=== PATIENT | male | born 1990 | race Caucasian/White ===

== ENCOUNTER 2018-09-24 16:32 | Inpatient (IN) | payer BC ==
--- NOTE | 2018-09-24 16:45 | EDPHY ---
H & P Stated Complaint: family made him come, he denies need to be here, psych hx Source: Patient Exam Limitations: No limitations - Personal History Current Tetanus/Diphtheria Vaccine: Unsure Current Tetanus Diphtheria and Acellular Pertussis (TDAP): Unsure - Medical/Surgical History Hx Asthma: No Hx Chronic Respiratory Disease: No Hx Diabetes: No Hx Cardiac Disease: No Hx Renal Disease: No Hx Cirrhosis: No Hx Alcoholism: No Hx HIV/AIDS: No Hx Splenectomy or Spleen Trauma: No - Social History Smoking Status: Heavy smoker Time Seen by Provider: 09/24/18 16:45 HPI/ROS: CHIEF COMPLAINT: Reportedly agitated, history of bipolar mood disorder HISTORY OF PRESENT ILLNESS: The patient is brought to the emergency department by his parents secondary to concerns of worsening bipolar mood disorder. The patient does have a history of bipolar mood disorder with 2 hospitalizations in the past. He has become increasingly more psychotic and paranoid over the past several weeks. His psychiatrist has been increasing his Seroquel without a significant improvement of symptoms. The patient is been having symptoms of paranoid delusions, concerns about his privacy and rights being violated. The patient does report using marijuana and alcohol. He last drink earlier today. The patient denies any suicidal or homicidal ideation. The patient denies any acute medical complaints. REVIEW OF SYSTEMS: A comprehensive 10 point review of systems is otherwise negative aside from elements mentioned in the history of present illness. (Young Neely) - Physical Exam Exam: General Appearance: Alert, no distress Eyes: Pupils equal and round no pallor or injection ENT, Mouth: Mucous membranes moist Respiratory: There are no retractions, lungs are clear to auscultation Cardiovascular: Regular rate and rhythm Gastrointestinal: Abdomen is soft and nontender, no masses, bowel sounds normal Neurological: A&O, normal motor function, normal sensory exam, normal cranial nerves Skin: Warm and dry, no rashes Musculoskeletal: Neck is supple nontender Extremities: symmetrical, full range of motion Psychiatric: Pressured speech, cooperative, denies suicidal or homicidal ideation (Young Neely) Constitutional: Initial Vital Signs Temperature (C) 37 C 09/24/18 16:37 Heart Rate 82 09/24/18 16:37 Respiratory Rate 16 09/24/18 16:37 Blood Pressure 145/87 H 09/24/18 16:37 O2 Sat (%) 95 09/24/18 16:37 O2 Delivery Mode Room Air Allergies/Adverse Reactions: No Known Allergies Allergy (Unverified 09/24/18 16:36) Home Medications: Medication Instructions Recorded Seroquel 09/24/18 Medical Decision Making ED Course/Re-evaluation: Patient presents to the ED for medical clearance and psychiatric evaluation secondary to decompensated bipolar mood disorder. The patient has no acute medical complaints he is hemodynamically stable. He is cooperative in the emergency department. The patient was evaluated by Mental Health. He was placed on a M1 psychiatric hold with an eye toward hospitalization at the in-patient unit here towards [facility]. The patient will be turned over to Dr. Wellington at shift change pending psychiatric disposition. (Young Neely) 6:50 a.m.- Patient has been stable overnight, he is awaiting transport to our inpatient behavioral health unit [facility]. Dr. Gomez is the accepting physician. I have completed the EMTALA form. (Vane Wellington) Differential Diagnosis: Differential diagnosis considered includes psychosis, bipolar mood disorder, schizophrenia, substance abuse (Young Neely) - Data Points Laboratory Results: Laboratory Results 09/24/18 17:05 09/24/18 17:05 09/24/18 18:40 Urine Opiates Screen NEGATIVE (NEGATIVE) Urine Barbiturates NEGATIVE (NEGATIVE) Ur Phencyclidine Scrn NEGATIVE (NEGATIVE) Ur Amphetamine Screen NEGATIVE (NEGATIVE) U Benzodiazepines Scrn NEGATIVE (NEGATIVE) Urine Cocaine Screen NEGATIVE (NEGATIVE) U Marijuana (THC) Screen NON-NEGATIVE H (NEGATIVE) Medications Given: Discontinued Medications Nicotine (Nicoderm Cq) 21 mg TD EDNOW ONE Stop: 09/24/18 19:09 Last Admin: 09/24/18 19:10 Dose: 21 mg Departure - Departure Disposition: [facility] IP Clinical Impression: Bipolar mood disorder Condition: Fair Referrals: NONE *PRIMARY CARE P,. [Primary Care Provider] - As per Instructions
[2018-09-24 17:17] LABS: PLATELET COUNT 259 10^3/uL (150-400)
[2018-09-24] MEDS ORDERED: NICOTINE 21 MG/24 HR PATCH TD ONE ×2 (18:12→19:08)
--- NOTE | 2018-09-24 21:19 | ASMTLCPROG ---
Notes Note: Notes: Met with pt and placed him on an M-1 Hold as he appears to be gravely disabled. Spoke with Dr. Neely who met with the parents early when they brought him into the ED. I spoke with father at [id number] who endorsed concerns for pt who appears to be at the beginning of a hypomanic episode. Parents are very supportive. Pt is currently a client at [facility] in [place] but I was unable to reach any staff there this evening. Date Signed: 09/24/2018 09:19 PM Electronically Signed By:Shelly Brown
--- NOTE | 2018-09-24 22:17 | ASMTTLCEVL ---
TLC Evaluation - Basic Information Evaluation Start Date and 09/24/2018 08:30 PM Time Hospital Status Answers: M1 Hold 72-hr M1 Hold Start Date 09/24/2018 09:00 PM and Time Patient statement Notes: "My parents and [facility] wanted me to come here." Narrative Notes: This 28 y/o, single, male, a client at [facility], was brought to the ED by his parents who reside in [place] due to concerns of worsening bipolar mood disorder. The pt has a history of Bipolar Disorder with 2 prior hospitalizations. He has become increasingly more psychotic and paranoid over the past several weeks. His psychiatrist (Dr. Harmon) has been increasing his seroquel without a significant improvement of symptoms. The pt has been preoccupied with concerns for his privacy and treatment at [facility]. The pt denies suicidal, parasuicidal, homicidal ideation, urges or behaviors. Pt denies auditory/visual hallucinations. Pt uses alcohol about once a week (beer) and smokes marijuana occasionally. He feels that marijuana helps him feel less anxious. Diagnosis History Notes: Pt has been diagnosed with bipolar disorder several years ago. He was hospitalized twice - 2 yrs ago - once at [facility] and once at [facility](Pt actually said he had been hospitalized in [place] and [place]) In March of 2018 - he was evaluated at [facility] in [place] and pt has the full report in his backpack. He is medicated with seroquel 600 mg and has been on many other medications in the past. Prior suicide attempts Notes: Pt denies Prior hospitalizations Notes: [facility]; [facility] - over 2 yrs ago. Treatment Responses Notes: Pt has had many medication trials - currently on seroquel without much improvement to his mood. History of violence Notes: Pt denies Therapist: Kevin Martinez Psychiatrist: Dr. Rosales Medications (name, dosage, route, freq uency) Notes: Seroquel 600 mg daily Allergies/Reaction Notes: None reported Sleep Notes: Pt reports that his sleep is okay Appetite Notes: Pt reports that his appetite is fine Medical/Surgical history Notes: Pt severed 2 tendons in his hand about 1 month ago requiring surgery - is currently in a cast. This happened while he was sharpening his kitchen knives. Substance use history (frequency, intensity, his tory, duration) Notes: Pt experimented with cocaine and hallucinogens when much younger. Admit to drinking beer weekly and smoking marijuana when he can as it decreases his anxiety. Pt's tox screen was negative except for positive marijuana. Family composition Notes: Pt's parents live in [place]. He has an older brother who lives in [place]. Need for family Answers: Yes participation in patient's care Family psychiatric/substance abuse history Notes: Pt's brother has suffered from deperession and made a suicide attempt in high school. Developmental history Notes: Pt grew up in [place] - attending school and graduated from high school. He was active in sports and had friends.He attended [employer] but dropped out freshman year (too much partying) He has an Associate Degree from [employer]. 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 Notes: NA Legal Notes: None Orthodox/Spiritual Notes: None Leisure Notes: biking, skiingmusic, drawing, internet Collateral Notes: Spoke with father. Pt has an evaluation done at [facility] in March of 2018 in his backpack. Unable to reach [facility] this evening. Patient's strengths Answers: Athletic (Please select at least TWO strengths): Intelligent Supportive Family Willingness TLC Evaluation - Mental Status Exam Appearance: Answers: Disheveled Eye Contact: Answers: Intermittent Mood: Answers: Euthymic Affect: Answers: Appropriate Congruent w/ Mood Behavior: Answers: Appropriate Cooperative Speech: Answers: Relevant Clear Thought Process: Answers: Tangential Insight: Answers: Poor Judgement: Answers: Fair Manic Signs/Symptoms Answers: Pressured Speech Hallucinations: Answers: None Delusions: Answers: Paranoid Ideation Pt reported to be making Answers: No suicidal/self-injuring threats? Pt reported to have Answers: No aggression/assault ideation/behavior? Pt reported to be making Answers: No aggression/assault threats? Pt exhibits inability to Answers: Yes care for self/grave disability? History of Answers: No suicidal/self-injuring ideation, behavior, or threats? History of Answers: No aggressive/assaultive ideation, behavior, or threats? History of serious Answers: No physical harm to self/others while in treatment setting? TLC Evaluation - Suicide/Homicide Risk Suicide Risk Factors: Answers: Lack/Loss of Employment Psychotic Disorder Single TLC Evaluation - Wrap-up BDI Total Score: 20 BDI Question #2 Score: 0 BDI Question #9 Score: 0 AXIS I Diagnosis (include DSM-V and ICD-10 codes), must also be entered in [employer], which is the source of truth. Notes: 296.42 (F31.12) Bipolar I Disorder, Moderate, most recent episode Manic Evaluation End Date and 09/24/2018 10:20 PM Time (HH:MM): Date Signed: 09/24/2018 10:17 PM Electronically Signed By:Shelly Brown
--- NOTE | 2018-09-24 22:21 | ASMTTCLDSP ---
TLC Discharge Disposition Disposition: Answers: Admit Disposition Notes: Notes: In consultation with ED MD, Dr. Young Neely and on-call psychiatrist Dr. Elayne Gomez both concurred that pt appears to meet the 27-65 criteria requiring in-pt psychiatric hospitalization as pt appears to be gravely disabled at this time. Discharge Concerns/Recommendations: Notes: Pt is a client at [facility] For inpatient Elayne Gomez MD admission, the following psychiatrist agreed to accept patient for admission to Behavioral Health ([facility]): Type of Hold: Answers: M1/72-hour Hold Hold initiated by: Answers: ED Physician Date Signed: 09/24/2018 10:20 PM Electronically Signed By:Shelly Brown
--- NOTE | 2018-09-25 02:25 | PDCONSULT ---
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 Per their report, the patient has become increasingly psychotic and paranoid over the past several weeks. His psychiatrist has been increasing his dose of Seroquel without significant improvement in symptoms. His parents stated that he was having paranoid delusions about privacy concerns. He denies any issues. He tells me he is sleeping well. He denies altered appetite, mood, delusions, hallucinations, and SI/HI. PMHx: Bipolar disorder PSHx; R wrist surgery Family hx: Patient denies VS: Temp Pulse Resp BP Pulse Ox 36.6 C 72 16 120/80 94 09/24/18 23:20 09/24/18 23:20 09/24/18 23:20 09/24/18 23:20 09/24/18 23:20 PE: GEN: NAD, A&Ox3 HEENT: MMM, no ulcers CV: nl S1, S2, no mrg PULM: CTAB, no w/r/r ABD: Soft, NTND EXT: No edema, 2+ pulses SKIN: No rash, splint on L wrist NEURO: CN II-XII intact, no weakness/numbness PSYCH: Flat affect, denies SI/HI WBC 8.02 10^3/uL (3.80-9.50) 09/24/18 17:05 RBC 5.28 10^6/uL (4.40-6.38) 09/24/18 17:05 Hgb 16.2 g/dL (13.7-17.5) 09/24/18 17:05 Hct 47.0 % (40.0-51.0) 09/24/18 17:05 MCV 89.0 fL (81.5-99.8) 09/24/18 17:05 MCH 30.7 pg (27.9-34.1) 09/24/18 17:05 MCHC 34.5 g/dL (32.4-36.7) 09/24/18 17:05 RDW 12.7 % (11.5-15.2) 09/24/18 17:05 Plt Count 259 10^3/uL (150-400) 09/24/18 17:05 MPV 10.0 fL (8.7-11.7) 09/24/18 17:05 Neut % (Auto) 58.6 % (39.3-74.2) 09/24/18 17:05 Lymph % (Auto) 24.9 % (15.0-45.0) 09/24/18 17:05 Bertie % (Auto) 9.6 % (4.5-13.0) 09/24/18 17:05 Eos % (Auto) 6.2 % (0.6-7.6) 09/24/18 17:05 Baso % (Auto) 0.5 % (0.3-1.7) 09/24/18 17:05 Nucleat RBC Rel Count 0.0 % (0.0-0.2) 09/24/18 17:05 Absolute Neuts (auto) 4.70 10^3/uL (1.70-6.50) 09/24/18 17:05 Absolute Lymphs (auto) 2.00 10^3/uL (1.00-3.00) 09/24/18 17:05 Absolute Monos (auto) 0.77 10^3/uL (0.30-0.80) 09/24/18 17:05 Absolute Eos (auto) 0.50 10^3/uL (0.03-0.40) H 09/24/18 17:05 Absolute Basos (auto) 0.04 10^3/uL (0.02-0.10) 09/24/18 17:05 Absolute Nucleated RBC 0.00 10^3/uL (0-0.01) 09/24/18 17:05 Immature Gran % 0.2 % (0.0-1.1) 09/24/18 17:05 Immature Gran # 0.02 10^3/uL (0.00-0.10) 09/24/18 17:05 RBC/WBC/PLT Morphology TNP 09/24/18 17:05 Platelet Estimate TNP 09/24/18 17:05 Sodium 137 mEq/L (135-145) 09/24/18 17:05 Potassium 4.2 mEq/L (3.5-5.2) 09/24/18 17:05 Chloride 101 mEq/L (97-110) 09/24/18 17:05 Carbon Dioxide 26 mEq/l (22-31) 09/24/18 17:05 Anion Gap 10 mEq/L (6-14) 09/24/18 17:05 BUN 15 mg/dL (7-23) 09/24/18 17:05 Creatinine 0.8 mg/dL (0.7-1.3) 09/24/18 17:05 Estimated GFR > 60 09/24/18 17:05 Glucose 92 mg/dL (70-100) 09/24/18 17:05 Calcium 9.3 mg/dL (8.5-10.4) 09/24/18 17:05 Urine Opiates Screen NEGATIVE (NEGATIVE) 09/24/18 18:40 Urine Barbiturates NEGATIVE (NEGATIVE) 09/24/18 18:40 Ur Phencyclidine Scrn NEGATIVE (NEGATIVE) 09/24/18 18:40 Ur Amphetamine Screen NEGATIVE (NEGATIVE) 09/24/18 18:40 U Benzodiazepines Scrn NEGATIVE (NEGATIVE) 09/24/18 18:40 Urine Cocaine Screen NEGATIVE (NEGATIVE) 09/24/18 18:40 U Marijuana (THC) Screen NON-NEGATIVE (NEGATIVE) H 09/24/18 18:40 Ethyl Alcohol < 10 mg/dL (0-10) 09/24/18 17:05 A/P: 28 yo M w/ hx of bipolar disorder presents with suspected decompensation. 1. Bipolar disorder - Parents report increasing paranoid delusions despite increasing doses of Seroquel per his psychiatrist. - M1 hold - Admission in inpatient behavioral health for further evaluation Diet - Regular Code - Full Ppx - Low risk
[2018-09-25] MEDS ORDERED: MAGNESIUM HYDROXIDE 30 ML UDCUP PO PRN (13:54)
[2018-09-25] MEDS ORDERED: OLANZapine DISINTEGR 10 MG TAB PO PRN (13:54)
[2018-09-25] MEDS ORDERED: MAG HYDROX/AL HYDROX/SIMETH 30 ML UDCUP PO PRN (13:54)
[2018-09-25] MEDS ORDERED: ACETAMINOPHEN 325 MG TAB PO PRN (13:54)
[2018-09-25] MEDS: NICOTINE 21 MG/24 HR PATCH TD SCH (14:29)
[2018-09-25] MEDS: QUEtiapine FUMARATE 200 MG TAB PO SCH (20:05)
[2018-09-26] MEDS: NICOTINE 21 MG/24 HR PATCH TD SCH (08:37)
--- NOTE | 2018-09-26 08:39 | ASMTBHMTP ---
Master Treatment Plan Master Treatment Plan Answers: Mood Instability with for: Psychosis Date: 09/26/2018 Diagnosis on Admission: 296.42 (F31.12) Bipolar I Disorder, Moderate, most recent episode Manic Expected length of stay: 3-5 Reason for admission: Notes: This 28 y/o, single, male, a client at [facility], was brought to the ED by his parents who reside in [place] due to concerns of worsening bipolar mood disorder. The pt has a history of Bipolar Disorder with 2 prior hospitalizations. He has become increasingly more psychotic and paranoid over the past several weeks. His psychiatrist (Dr. Harmon) has been increasing his seroquel without a significant improvement of symptoms. The pt has been preoccupied with concerns for his privacy and treatment at [facility]. The pt denies suicidal, parasuicidal, homicidal ideation, urges or behaviors. Pt denies auditory/visual hallucinations. Pt uses alcohol about once a week (beer) and smokes marijuana occasionally. He feels that marijuana helps him feel less anxious. Patient's stated presenting problems: Notes: "[facility] made me come here. They violated my rights". Patient's goals for treatment: Notes: "Relook at medications". Patient's strengths: Notes: "I'm smart". Identify supports outside of hospital: Notes: "My computer". Discharge criteria: Notes: Psychotic symptoms will be reduced or eliminated with return to baseline functioning in affect, thinking and behavior prior to discharge. Initial disposition plan/considerations: Notes: Ct. will participate in unit activities. Master Treatment Plan Required Signatures Psychiatrist signature: Answers: Psychiatrist: RN on-shift signature: Answers: RN: Patient signature: Answers: Patient: Date Signed: 09/26/2018 08:38 AM Electronically Signed By:Jennifer Mixon
--- NOTE | 2018-09-26 08:47 | ASMTCMCOM ---
CM Note CM Note Notes: CC met with ct. to develop MTP. Ct. presented as very guarded and paranoid. His answers were very short. He refused signing ALVAREZ for his parents and providers. [place] [facility] [facility] parents are considering [facility] services as they do not believe that returning to [facility] services would be beneficial for ct. Sandi. was in an independent living apartment with some [facility] services but parents think that he needs higher level of services now. The other option they are considering is having him come home. They were not able to discuss it with him as he doesn't want to take their calls. [facility] [place] that [place]s paranoia is part of his manic symptoms and that when he is at baseline and stable he doesn't experience paranoia. [facility] will email this CC summaries of previous admissions. Date Signed: 09/26/2018 08:46 AM Electronically Signed By:Jennifer Mixon
[2018-09-26] MEDS: DIVALPROEX ER 500 MG TAB PO SCH (08:56)
[2018-09-26] MEDS ORDERED: NICOTINE 21 MG/24 HR PATCH TD SCH (09:00)
--- NOTE | 2018-09-26 10:05 | BAPA ---
[f rep st] ADMISSION PSYCHIATRIC ASSESSMENT DATE OF SERVICE: 09/26/2018 CHIEF COMPLAINT: "I'm here because I was forced to come here by [facility]. They just force me to do things, force me to sign things, answer questions for me when I meet with my psychiatrist. My rights are always being violated, I'm here because they want me here." HISTORY OF PRESENT ILLNESS: From the ED note dated 09/24/18, patient was brought to the emergency department by his parents due to concerns of worsening bipolar mood disorder. Patient has a history of bipolar disorder with 2 hospitalizations in the past. Reportedly, patient has become more psychotic and paranoid over the past several weeks. Patient's psychiatrist has been increasing his Seroquel without a significant improvement in symptoms. Reportedly, patient has been having symptoms of paranoid delusions, concerns about his privacy and his rights being violated. Patient reports using marijuana and alcohol. Last drink was earlier in the day prior to his arrival at the ED. Patient denied any suicidal or homicidal ideation. From the [facility] evaluation dated 09/24/18, patient was placed on a 72-hour M-1 hold with start date and time of 09/24/18 at 9 p.m. Patient reported to the [facility] bakery helper "my parents and Andreee wanted me to come here." Patient reports to this FREIGHT COORDINATOR the current Seroquel dose is making him "too tired" in the morning upon awakening. Patient reports no improvement in symptoms of bipolar disorder and describes Seroquel working well for sleep only. Patient reports the main symptom he needs help with is anxiety. Patient reports a history of kwaku 2 years ago and was hospitalized in [place], [place] at [facility] for "about 5 days." Patient describes symptoms during that period of time as elevated mood, grandiosity, decreased need for sleep, pressure to keep talking. Reports he was easily distracted, increased goal-directed activity. Patient does not describe any specifics details, but does agree that he was having these symptoms during that time period and was hospitalized. Patient denies having these symptoms currently. The patient again reports the main symptom he needs help with is anxiety and reports that Ativan works best and does ask for a prescription for Ativan. Patient also reports a diagnosis of attention deficit hyperactivity disorder. This diagnosis was not reported in any of patient's past records. Patient appears to be a poor historian, and provides minimal history. Will continue to gather HPI collateral throughout the course of the patient's hospitalization. Patient provides his consent for this FREIGHT COORDINATOR to call his father, Oliverio, to gather more collateral and discuss treatment and discharge planning. Patient provides following number for his father: [phone]. Patient states, "Yeah, you can call him, he is super busy, may need to leave a message. Don't call my mom though, just my dad." Patient also provides consent for this FREIGHT COORDINATOR to contact Dr. Burrows at [facility] to discuss treatment, discharge planning, and Sundeep Malik as potential step-down for continued treatment after discharge from [facility]. Patient reports, "Yes, if that is were you want me to go, then that' s what I'll do. Michelle owns me right now though." TREATMENT TEAM MEETING: Patient met with this FREIGHT COORDINATOR and treatment team to review treatment plan and goals for hospitalization. When asked why patient is hospitalized, patient refuses to answer and states, "You know I already said this four times now." Patient appears paranoid, suspicious and refuses to sign treatment plan and attendance document. Patient continues to report paranoid delusions regarding his rights and privacy being violated. Mental status during treatment meeting is notable for paranoid delusions. PAST PSYCHIATRIC HISTORY: Patient was diagnosed with bipolar disorder II years ago after a period of kwaku and was hospitalized in [place], [place]. Patient has also been hospitalized at [facility] in [place]. In March 2018, patient was evaluated at [facility] in [place]. Patient most recently prescribed Seroquel. [facility] evaluation reports Seroquel dose as 600 mg. Chart review indicates Seroquel XR 400 mg. Patient states that most recent dose of Seroquel was 400 mg at h.s. Patient denies any history of suicide attempts. Patient reports history of numerous trials of antipsychotics and traditional mood stabilizers. Patient reports trials of lithium, Depakote, olanzapine in the past. Patient states "olanzapine is the worst drug ever." Patient reports he is not willing to try lithium again. Patient does agree to begin a trial of Depakote. Patient appears to be a poor historian, states he is unsure if these medications work, but patient is very adamant about not wanting to be put back on olanzapine or lithium. Patient reports need for Seroquel for sleep, reports he had been sleeping okay when using Seroquel at bedtime. Will continue to gather past psychiatric history throughout the course of the patient's hospitalization. ALLERGIES: No known allergies. CURRENT MEDICATIONS: 1. Tylenol 650 mg p.o. q.4 hours p.r.n. 2. Depakote ER 1500 mg p.o. daily. 3. Ativan 0.5-1 mg p.o. q.6 hours p.r.n. 4. Maalox syrup 30 mL p.o. q.6 hours p.r.n. 5. Milk of magnesia 30 mL p.o. daily p.r.n. 6. Nicotine 21 mg transdermal daily. 7. Seroquel 200 mg p.o. q.h.s. PAST MEDICAL HISTORY: Medical/surgical history significant for 2 severed tendons in hand about 1 month ago requiring surgery. Patient is currently in a cast. Patient reports no other medical/surgical history. Will continue to gather patient's medical/surgical history throughout the course of the patient' s hospitalization. SOCIAL HISTORY: Patient reports he was born and raised in [place], attended and graduated from high school in [place]. Patient reports he attended the [employer] but dropped out of his freshman year. Patient currently has an associate degree from [employer], [employer]. Patient is currently single with no children. Patient currently resides in his own apartment and is currently in treatment with Michelle. Patient describes his sexual orientation as heterosexual and states he is currently not in a relationship. 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 Patient reports no history of duty, no legal history. Patient reports no yarsanism or spiritual practice. SUBSTANCE USE HISTORY: Patient reports experimenting with cocaine and hallucinogens during college. Patient reports using marijuana to decrease his anxiety. Patient's urine toxicology screen was positive for marijuana. Patient reports he last used marijuana 1 week ago and reports he is unable to use marijuana very much due to inability to afford it. Will continue to gather patient's substance use history throughout the course of the patient's hospitalization. SUBSTANCE ABUSE BRIEF INTERVENTION: Brief intervention regarding the risks of cannabis abuse is provided to patient with goal to reduce the risk of harm that could result from the continued use of cannabis, with the general aim to investigate the problem, raise awareness of problem, develop a solution with the patient, recommend a specific change or activity, and motivate the patient toward change. Assess substance abuse behavior and give supportive advice about harm reduction, recommend a reduction in hazardous/at-risk consumption patterns, and facilitate referrals for additional specialized treatment with assistant child care teacher. Intermediate goal is for the patient to quit and attend outpatient substance abuse treatment. Intervention focus on intermediate goals to allow for more immediate success in the treatment process to keep the patient motivated. Review following with patient: Cannabis use risks: Short- term use: impaired short-term memory, impaired motor coordination, altered judgement, in high doses paranoia and psychosis. Long-term use addiction, diminished life satisfaction and achievement, symptoms of chronic bronchitis, and increased risk of chronic psychosis disorders if predisposition to such disorders. In withdrawal anger, aggression irritability, anxiety and nervousness, decreased appetite or weight loss, restlessness, and sleep difficulties with strange dreams. OUTPATIENT SUBSTANCE ABUSE TREATMENT: Patient referred to outpatient provider and treatment for continued treatment related to substance abuse. FAMILY PSYCHIATRIC HISTORY: Patient's brother has a history of depression and reportedly made a suicide attempt while in high school. No other family psychiatric history or substance abuse history reported at this time. Will continue to gather patient's family psychiatric history throughout the course of the patient's hospitalization. ADMISSION LABS AND STUDIES: 1. CBC within normal limits, except absolute eosinophils were elevated at 0.50. 2. BMP within normal limits. 3. Toxicology screen non-negative for THC, negative for the other substances that were screened, and negative for ethyl alcohol. MENTAL STATUS EXAM: Patient is a well-nourished male looking stated chronological age. Attire is appropriate. Dress is casual. Grooming status is appropriate. Ambulation is independent. Gait is normal and coordinated. Posture is normal and relaxed. At times, patient does appear to be tense, scanning the room. Patient does look behind him several times throughout the course of the evaluation. Eye contact is fairly appropriate and adequate. Motor activity is appropriate, with purposeful, organized, coordinated movements , with no involuntary movements noted. Patient turns his head several times to look behind himself in a paranoid and suspicious manner. Attitude is fairly cooperative and friendly. Patient does appear to be guarded and defensive at times. Patient appears distractible and disinterested and does not relate well to this interviewer. Language production is spontaneous. Rate, rhythm, and volume are normal. Articulation is clear. Patient reports mood as "okay" with congruent affect. Patient's thought process is nonlinear and illogical, with loose associations, tangential thought. No thought blocking or concrete thinking or any other signs of formal thought disorder noted. Patient does not report suicidal or homicidal thoughts, ideas, or plans. Patient denies auditory or visual hallucinations. Patient reports paranoid delusions. Patient does appear to be suspicious during the interview. Patient does not appear to be attending to internal stimuli. Patient is oriented to person, place, and time. Patient's attention and concentration are fair. Patient's insight and judgment are poor. There is no evidence of gross cognitive dysfunction at any point during the interview and no evidence of apparent dysfunction in recent or remote memory noted. The patient does not report undesirable side effects from current medications. DIAGNOSES: Based on the patient's history and current presentation, patient's diagnosis is: 1. Bipolar I disorder, severe. 2. Cannabis use disorder, severe. 3. R/O Schizoaffective Disorder, bipolar type. 4. R/O Cannabis-induced psychosis. FORMULATION: The patient is a 28-year-old male, single, unemployed, currently being treated by Michelle for therapeutic living and is treated by Dr. Harmon , psychiatrist. Patient currently resides in apartment in [place], [place]. Patient presents to the hospital involuntarily with parents at the [facility] due to decompensation of bipolar disorder symptoms and is currently on an M-1 hold. Patient requires continued inpatient care because of current psychosis, notably paranoid delusions. Patient currently exhibiting no signs of kwaku or depression and reports no symptoms of kwaku or depression. Patient is unable to appropriately attend to his ADLs and appropriately communicate his basic needs. Patient has a past psychiatric history of bipolar disorder and is currently treated with Seroquel 400 mg p.o. q.h.s., and response to treatment has been poor. The patient reports no response for mood stability. Patient is a high safety risk due to current mood instability. Protective factors while hospitalized include ongoing safety checks, active involvement in treatment and support from our treatment team. Patient could benefit from inpatient hospitalization for safety, crisis stabilization, and medication evaluation. PLAN: 1. Medications: After reviewing options, risks, and benefits with the patient, patient agrees to continue current medications listed above. No other medication changes at this time as more time is needed to determine ongoing tolerability and efficacy. Plan is to continue to observe patient for response and side effects from medications, and ongoing monitoring and evaluation. 2. Review with patient informed consent and recommendations for psychotropic medication treatment listed below 3. Labs: liver function, A1c, lipid panel 4. Therapy: continue milieu and group therapy 5. Further investigation including gathering information from patients relatives and review of past case records to inform treatment plan. 6. Safety/Wellness plan and follow-up outpatient appointments to be established prior to discharge. Next steps are for patient to meet with floor care technician to plan a safe discharge plan and establish outpatient services for ongoing treatment. 7. Confer with inpatient treatment team regarding treatment plan. 8. Address psychosocial stressors by meeting with assistant child care teacher to establish discharge plan including referrals for outpatient services. 9. Legal status: M1 10. Consider discharge next week if patient is in stable condition, safe, and has a safe discharge plan. 11. Substance abuse interventions: cannabis ESTIMATED LENGTH OF STAY: 7-10 days PSYCHOTROPIC MEDICATION TREATMENT INFORMED CONSENT and RECOMMENDATIONS: Review nature of condition, diagnosis, and prognosis. Review nature and purpose of psychotropic medication treatment. Review type of psychotropic medications being ordered. Review risk and benefits of psychotropic medication treatment. Review probable length of time will need to take medications. Review risk and benefits of not undergoing psychotropic medication treatment. Review alternative treatments to psychotropic medications. Review psychotropic medications contraindications, drug-drug interactions, side effects, and importance of reporting any side effects to a psychiatric provider or nurse during inpatient hospitalization, and upon discharge to patients psychiatric outpatient provider, primary care provider, or other health health care consultant. Review importance of asking a nurse, psychiatric provider, or primary care provider any questions or problems concerning the psychotropic medications. Verify patient understands the information that has been provided, and understands, accepts, and agrees to psychotropic medications. Review patients safety plan and importance of patient to communicate to staff while hospitalized if patient is ever a danger to self/others, or unable to care for self, and upon discharge, the importance for patient to contact [facility] or [facility], or go to the nearest emergency room, if patient is ever a danger to self/others, or unable to care for self. Recommend that upon discharge patient establish medication management treatment with a psychiatric provider, establishes routine therapy appointments, and follow-up with primary care provider. Verify patient understands and agrees to these recommendations. /[id number]/MODL MTDD
[2018-09-26] MEDS: NICOTINE POLACRILEX 2 MG GUM B PRN ×5 (13:51→20:05)
[2018-09-26] MEDS: QUEtiapine FUMARATE 200 MG TAB PO SCH (20:05)
[2018-09-27] MEDS: NICOTINE POLACRILEX 2 MG GUM B PRN ×5 (06:34→18:23)
--- NOTE | 2018-09-27 06:49 | SOAPPROG ---
SOAP Progress Note Assessment/Plan: Assessment: Bipolar I Disorder, with mood congruent psychotic features. Cannabis Use Disorder, Severe. R/O Schizoaffective Disorder, Bipolar Type. No improvement noted (see subjective/objective note). Patient is not safe to discharge at this time as patient continues to exhibit signs of psychosis (notably delusions) , and express psychosis symptoms. Patient requires continued inpatient care because of current psychosis, and requires inpatient level of care to stabilize in order to no longer be gravely disabled due to mental illness. Patient exhibits persistent inability to perform essential function due to current psychosis. Patient is unable to communicate his basic needs appropriately and unable to attend independently and appropriately to ADLs. Patients support system has inability to manage functional impairment at lower level of care. Patient could benefit from continued inpatient hospitalization for crisis stabilization, safety, and medication evaluation. Plan: 1. Psychotropic medications: After reviewing options, risks, and benefits, patient agrees to continue Depakote ER 1,500 mg QD, discontinue Seroquel, and begin Invega 6 mg po QD. No other medication changes as more time is needed to determine ongoing tolerability and efficacy. Plan is to continue to observe patient for response and side effects from medications, and ongoing monitoring and evaluation. 2. Review with patient informed consent and recommendations for psychotropic medication treatment listed below 3. Labs: no additional labs at this time 4. Therapy: continue milieu and group therapy 5. Further investigation including gathering information from patients relatives and review of past case records to inform treatment plan. 6. Safety/Wellness plan and follow-up outpatient appointments to be established prior to discharge. Next steps are for patient to meet with healthcare interpreter to plan a safe discharge plan and establish outpatient services for ongoing treatment. 7. Confer with inpatient treatment team regarding treatment plan. 8. Psychosocial stressors addressed through director case management. 9. Legal status: M1 10. Consider discharge tomorrow if patient is in stable condition, safe, and has a safe discharge plan. 11. Substance abuse interventions: THC PSYCHOTROPIC MEDICATION TREATMENT INFORMED CONSENT and RECOMMENDATIONS: Review nature of condition, diagnosis, and prognosis. Review nature and purpose of psychotropic medication treatment. Review type of psychotropic medications being ordered. Review risk and benefits of psychotropic medication treatment. Review probable length of time patient will need to take medications. Review risk and benefits of not undergoing psychotropic medication treatment. Review alternative treatments to psychotropic medications. Review psychotropic medications contraindications, drug-drug interactions, side effects, and importance of reporting any side effects to a psychiatric provider or nurse during inpatient hospitalization, and upon discharge to patients psychiatric outpatient provider, primary care provider, or other health critical care registered nurse. Review importance of asking a nurse, psychiatric provider, or primary care provider any questions or problems concerning the psychotropic medications. Verify patient understands the information that has been provided, and understands, accepts, and agrees to psychotropic medications. Review patients safety plan and importance of patient to report to staff while hospitalized if patient is ever a danger to self/others, or unable to care for self, and upon discharge, the importance for patient to contact [facility] or [facility], or go to the nearest emergency room, if patient is ever a danger to self/others, or unable to care for self. Recommend that upon discharge patient establish medication management treatment with a psychiatric provider, establishes routine therapy appointments, and follow-up with primary care provider. Verify patient understands and agrees to these recommendations. 09/27/18 06:49 Subjective: Following up with patient for evaluation of psychosis and safety. Patient reports, "How is it going on my rights? Look I will show you." Patient provides several documents including one that has the following written over and over, filling up entire 8x11 page, "All work and no play makes Misael a dull boy." When this FISHING VESSEL MATE asks the patient what this means patients states, "Haven't you ever seen The Shining?" Patient reports no side effects from current medications and agrees to continue Depakote, discontinue Seroquel, and being Invega 6 mg po QD. Objective: Vital Signs Temp Pulse Resp BP Pulse Ox 36.5 C 78 18 122/69 H 96 09/27/18 06:00 09/27/18 06:00 09/27/18 06:00 09/27/18 06:00 09/27/18 06:00 MSE: The patient is a well-nourished male looking stated chronological age. Attire is appropriate and dress is casual. Grooming status is appropriate. Ambulation is independent. Gait is normal and coordinated. Posture is normal and relaxed. Eye contact is appropriate. Motor activity is appropriate with purposeful, organized, coordinated movements; with no involuntary movements. Attitude is cooperative. Patient appears attentive and relates well to this interviewer. Language production is spontaneous. R/R/V normal. Articulation is clear. Patient reports mood as okay with congruent and appropriate affect. Patients thought process is disorganized, non-linear, and illogical. Patient denies suicidal thoughts, denies homicidal ideation. Patient denies auditory, visual hallucinations. Patient reports delusions. Patient does not appear to be attending to internal stimuli. Patients attention and concentration are fair. Patient is oriented to person, place. Patients insight and judgment are poor. SUBSTANCE ABUSE BRIEF INTERVENTION: Brief intervention regarding the risks of THC abuse is provided to patient with goal to reduce the risk of harm that could result from the continued use of THC, with the general aim to investigate the problem, raise awareness of problem, develop a solution with the patient, recommend a specific change or activity, and motivate the patient toward change. Assess substance abuse behavior and give supportive advice about harm reduction, recommend a reduction in hazardous/at-risk consumption patterns, and facilitate referrals for additional specialized treatment with inpatient care manager rn. Intermediate goal is for the patient to quit and attend outpatient substance abuse treatment. Intervention focus on intermediate goals to allow for more immediate success in the treatment process to keep the patient motivated. Review following with patient: Cannabis use risks: Short- term use: impaired short-term memory, impaired motor coordination, altered judgement, in high doses paranoia and psychosis. Long-term use addiction, diminished life satisfaction and achievement, symptoms of chronic bronchitis, and increased risk of chronic psychosis disorders if predisposition to such disorders. In withdrawal anger, aggression irritability, anxiety and nervousness, decreased appetite or weight loss, restlessness, and sleep difficulties with strange dreams. OUTPATIENT SUBSTANCE ABUSE TREATMENT: Patient referred to outpatient provider and treatment for continued treatment related to substance abuse. - Time Spent With Patient Time Spent With Patient: 15 minutes, met with patient individually. - Pending Discharge Pending Discharge Within 24 Hours: No Pending Discharge Within 48 Hours: No ICD10 Worksheet Patient Problems: Problems Problem Status Onset Bipolar mood disorder Acute
[2018-09-27] MEDS: NICOTINE 21 MG/24 HR PATCH TD SCH (10:42)
[2018-09-27] MEDS: DIVALPROEX ER 500 MG TAB PO SCH (10:43)
[2018-09-27] MEDS: PALIPERIDONE 3 MG TAB.ER PO SCH (10:44)
--- NOTE | 2018-09-27 12:54 | ASMTCMCOM ---
CM Note CM Note Notes: Ct. continues to be very paranoid. He refused his parents' suggestion to come by his apartment to water his plants even though he realizes that they may . Date Signed: 09/27/2018 12:53 PM Electronically Signed By:Jennifer Mixon
[2018-09-27] MEDS: LORazepam 0.5 MG TAB PO PRN (16:57)
[2018-09-28] MEDS: NICOTINE POLACRILEX 2 MG GUM B PRN ×7 (04:57→19:41)
[2018-09-28] MEDS: LORazepam 0.5 MG TAB PO PRN ×3 (05:47→18:04)
[2018-09-28] MEDS: NICOTINE 21 MG/24 HR PATCH TD SCH (08:30)
[2018-09-28] MEDS: PALIPERIDONE 3 MG TAB.ER PO SCH (08:31)
[2018-09-28] MEDS: DIVALPROEX ER 500 MG TAB PO SCH (08:31)
--- NOTE | 2018-09-28 09:25 | ASMTCMCOM ---
CM Note CM Note Notes: Ct. continues to be very paranoid and guarded. He responds to questions with one word answers and has not been engaging in conversation with this CC. Date Signed: 09/28/2018 09:24 AM Electronically Signed By:Jennifer Mixon
--- NOTE | 2018-09-28 16:56 | SOAPPROG ---
SOAP Progress Note Assessment/Plan: Assessment: 28 yo M w/ hx of bipolar disorder brought in by his parent due to concerns of decompensation. Per their report, the patient has become increasingly psychotic and paranoid over the past several weeks. His psychiatrist has been increasing his dose of Seroquel without significant improvement in symptoms. His parents stated that he was having paranoid delusions about privacy concerns. WEEKEND PLAN: 09/28/18 16:53 1. Patient was recently started on Depakote and Invega to treat kwaku and psychosis since patient and Dr. Dong didn't feel that Seroquel was very effective. Patient denies any SE's, and there are no signs of EPS or TD. 2. Patient remains paranoid, especially feels [facility] had "no right" to make him come to hospital. 3. Parents would like patient to d/c to [facility]. 4. [facility] Subjective: Patient is pacing in hallway, wearing baseball cap and splint on right forearm. Patient is upset about psych admission and angry at [facility] providers for putting him on [facility]. Patient keeps asking for a copy of the book, "Finding Sanity ," which he says his provider at [facility] recommended to him. Objective: Vital Signs Temp Pulse Resp BP Pulse Ox 36.5 C 97 16 131/80 H 95 09/27/18 06:00 09/28/18 06:00 09/28/18 06:00 09/28/18 06:00 09/28/18 06:00 MSE: Affect: Labile, irritable at times, cooperative mostly Mood: "OK" TP: Disorganized, perseverates TC: Denies any SI/HI, still paranoid Insight/ Judgment: Poor - Time Spent With Patient Time Spent With Patient: 15" - Pending Discharge Pending Discharge Within 24 Hours: No Pending Discharge Within 48 Hours: No ICD10 Worksheet Patient Problems: Problems Problem Status Onset Bipolar mood disorder Acute
[2018-09-29] MEDS: LORazepam 0.5 MG TAB PO PRN ×3 (06:52→20:47)
[2018-09-29] MEDS: NICOTINE POLACRILEX 2 MG GUM B PRN ×7 (06:53→20:48)
[2018-09-29] MEDS: PALIPERIDONE 3 MG TAB.ER PO SCH (08:31)
[2018-09-29] MEDS: NICOTINE 21 MG/24 HR PATCH TD SCH (08:31)
[2018-09-29] MEDS: DIVALPROEX ER 500 MG TAB PO SCH (08:31)
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
[2018-09-30] MEDS: LORazepam 0.5 MG TAB PO PRN ×3 (06:29→19:13)
[2018-09-30] MEDS: NICOTINE POLACRILEX 2 MG GUM B PRN ×7 (06:30→19:13)
--- NOTE | 2018-09-30 06:52 | SOAPPROG ---
SOAP Progress Note Assessment/Plan: Assessment: Schizoaffective Disorder, Bipolar Type. Cannabis Use Disorder, Severe. Slight improvement noted (see subjective/objective note). Patient is not safe to discharge at this time as patient continues to exhibit signs of psychosis ( notably delusions), and express psychosis symptoms. Patient requires continued inpatient care because of current psychosis, and requires inpatient level of care to stabilize in order to no longer be gravely disabled due to mental illness. Patient could benefit from continued inpatient hospitalization for VPA level tomorrow morning, continued stabilization, and ongoing medication evaluation. Consider discharge tomorrow. Plan: 1. Psychotropic medications: After reviewing options, risks, and benefits, patient agrees to continue current medications. No medication changes as more time is needed to determine ongoing tolerability and efficacy. Plan is to continue to observe patient for response and side effects from medications, and ongoing monitoring and evaluation. 2. Review with patient informed consent and recommendations for psychotropic medication treatment listed below 3. Labs: VPA level tomorrow AM 4. Therapy: continue milieu and group therapy 5. Further investigation including gathering information from patients relatives and review of past case records to inform treatment plan. 6. Safety/Wellness plan and follow-up outpatient appointments to be established prior to discharge. Next steps are for patient to meet with skin care technician to plan a safe discharge plan and establish outpatient services for ongoing treatment. 7. Confer with inpatient treatment team regarding treatment plan. 8. Psychosocial stressors addressed through case monitor. 9. Legal status: [facility] 10. Consider discharge tomorrow if patient is in stable condition, safe, and has a safe discharge plan. 11. Substance abuse interventions: THC PSYCHOTROPIC MEDICATION TREATMENT INFORMED CONSENT and RECOMMENDATIONS: Review nature of condition, diagnosis, and prognosis. Review nature and purpose of psychotropic medication treatment. Review type of psychotropic medications being ordered. Review risk and benefits of psychotropic medication treatment. Review probable length of time patient will need to take medications. Review risk and benefits of not undergoing psychotropic medication treatment. Review alternative treatments to psychotropic medications. Review psychotropic medications contraindications, drug-drug interactions, side effects, and importance of reporting any side effects to a psychiatric provider or nurse during inpatient hospitalization, and upon discharge to patients psychiatric outpatient provider, primary care provider, or other health career services representative. Review importance of asking a nurse, psychiatric provider, or primary care provider any questions or problems concerning the psychotropic medications. Verify patient understands the information that has been provided, and understands, accepts, and agrees to psychotropic medications. Review patients safety plan and importance of patient to report to staff while hospitalized if patient is ever a danger to self/others, or unable to care for self, and upon discharge, the importance for patient to contact [facility] or [facility], or go to the nearest emergency room, if patient is ever a danger to self/others, or unable to care for self. Recommend that upon discharge patient establish medication management treatment with a psychiatric provider, establishes routine therapy appointments, and follow-up with primary care provider. Verify patient understands and agrees to these recommendations. 09/30/18 06:51 Subjective: Following up with patient for evaluation of psychosis and safety. Patient reports, "Am I leaving today?" Patient reports no side effects and agrees to continue current medications. Patient agrees to VPA level tomorrow prior to discharge. Objective: Vital Signs Temp Pulse Resp BP Pulse Ox 36.5 C 98 16 134/79 H 98 09/29/18 06:00 09/30/18 06:00 09/30/18 06:00 09/30/18 06:00 09/30/18 06:00 MSE: The patient is a well-nourished male looking stated chronological age. Attire is appropriate and dress is casual. Grooming status is appropriate. Ambulation is independent. Gait is normal and coordinated. Posture is normal and relaxed. Eye contact is appropriate. Motor activity is appropriate with purposeful, organized, coordinated movements; with no involuntary movements. Attitude is cooperative. Patient appears attentive and relates well to this interviewer. Language production is spontaneous. R/R/V normal. Articulation is clear. Patient reports mood as okay with congruent and appropriate affect. Patients thought process is fairly linear and logical. Patient denies suicidal thoughts, denies homicidal ideation. Patient denies auditory, visual hallucinations. Patient reports paranoid delusions. Patient does not appear to be attending to internal stimuli. Patients attention and concentration are fair. Patient is oriented to person, place, and time. Patients insight and judgment are poor. MD REPORT FROM WEEKEND: Less paranoid over the weekend. Calmer, less anxious, sleeping well. No med changes. SUBSTANCE ABUSE BRIEF INTERVENTION: Brief intervention regarding the risks of THC abuse is provided to patient with goal to reduce the risk of harm that could result from the continued use of THC, with the general aim to investigate the problem, raise awareness of problem, develop a solution with the patient, recommend a specific change or activity, and motivate the patient toward change. Assess substance abuse behavior and give supportive advice about harm reduction, recommend a reduction in hazardous/at-risk consumption patterns, and facilitate referrals for additional specialized treatment with healthcare advisory services manager. Intermediate goal is for the patient to quit and attend outpatient substance abuse treatment. Intervention focus on intermediate goals to allow for more immediate success in the treatment process to keep the patient motivated. Review following with patient: Cannabis use risks: Short- term use: impaired short-term memory, impaired motor coordination, altered judgement, in high doses paranoia and psychosis. Long-term use addiction, diminished life satisfaction and achievement, symptoms of chronic bronchitis, and increased risk of chronic psychosis disorders if predisposition to such disorders. In withdrawal anger, aggression irritability, anxiety and nervousness, decreased appetite or weight loss, restlessness, and sleep difficulties with strange dreams. OUTPATIENT SUBSTANCE ABUSE TREATMENT: Patient referred to outpatient provider and treatment for continued treatment related to substance abuse. - Time Spent With Patient Time Spent With Patient: 15 minutes, met with patient individually. - Pending Discharge Pending Discharge Within 24 Hours: Yes Pending Discharge Within 48 Hours: No Pending Discharge Date: 10/01/18 Pending Discharge Time: 11:00 ICD10 Worksheet Patient Problems: Problems Problem Status Onset Bipolar mood disorder Acute
[2018-09-30] MEDS: PALIPERIDONE 3 MG TAB.ER PO SCH (08:23)
[2018-09-30] MEDS: DIVALPROEX ER 500 MG TAB PO SCH (08:23)
[2018-09-30] MEDS: NICOTINE 21 MG/24 HR PATCH TD SCH (08:33)
--- NOTE | 2018-09-30 11:15 | ASMTCMCOM ---
CM Note CM Note Notes: CC checked in with ct. who was pleasant and cooperative. Ct. appears less paranoid. He is on board with going to [facility] upon discharge. He has a meeting scheduled with them today at noon and discharge is planned for tomorrow. Ct. is concerned about not being able to get PT for his fingers but was fine with resuming it following discharge. Date Signed: 09/30/2018 11:10 AM Electronically Signed By:Jennifer Mixon
[2018-10-01] MEDS: NICOTINE POLACRILEX 2 MG GUM B PRN ×2 (06:03→07:43)
[2018-10-01] MEDS: LORazepam 0.5 MG TAB PO PRN (06:03)
[2018-10-01 06:53] VITALS: BP 116/68
[2018-10-01] MEDS: DIVALPROEX ER 500 MG TAB PO SCH (07:43)
[2018-10-01] MEDS: NICOTINE 21 MG/24 HR PATCH TD SCH (07:43)
[2018-10-01] MEDS: PALIPERIDONE 3 MG TAB.ER PO SCH (07:43)
--- NOTE | 2018-10-01 08:23 | BDS ---
[f rep st] BEHAVIORAL HEALTH DISCHARGE SUMMARY REASON FOR ADMISSION: From the ED note dated 09/24/2018, patient was brought to the emergency department by his parents due to worsening bipolar mood symptoms. Reportedly, patient had become more psychotic and paranoid over the past several weeks prior to presenting to the emergency department. Patient reportedly having symptoms of paranoid delusions, concerns about his privacy and rights being violated. Patient was admitted involuntarily and on an M1 hold due to being gravely disabled due to a mental illness. Patient was admitted for safety, crisis stabilization, and medication management. ADMITTING DIAGNOSES: 1. Bipolar disorder. 2. Cannabis use disorder, severe dependence. 3. Nicotine dependence. ADMISSION PHYSICAL EXAM: Patient was seen on 09/25/2018 for history and physical consultation for medical clearance for inpatient psychiatric hospitalization and treatment. Patient was medically cleared for inpatient psychiatric hospitalization and treatment. For further details, please refer to senior analytic consultant note document dated 09/25/2018. ADMISSION LABS: 1. CBC within normal limits except absolute eosinophils were elevated at 0.50. 2. BMP within normal limits. 3. Hemoglobin A1c within normal limits at 5.6. 4. Liver function within normal limits. 5. Lipid panel within normal limits except triglycerides were elevated at 290 and VLDL cholesterol was elevated at 58. 6. Toxicology screen non-negative for THC, negative for all other substances that were screened and negative for ethyl alcohol. 7. VPA level: 105.2 at current Depakote ER 1,500 mg po QD after 5 doses. MAJOR PROCEDURES OR TESTS: None. HOSPITAL COURSE: The most prominent symptoms and behaviors while the patient was here were reports of paranoid delusions. The treatment modalities utilized were milieu and group therapy. Depakote ER 1500 mg p.o. daily was started to target mood symptoms, was tolerated with no report of side effects and with good response. Invega 6 mg p.o. daily was started to target mood and psychosis symptoms, was tolerated with no report of side effects and with good response. Ativan 1 mg po Q6 HRS PRN was started to target acute agitation, patient received 1 mg 3x per day for several days, and Ativan RX for taper was written at time of discharge. Patient has improved considerably with no signs of psychiatric symptoms and no psychiatric symptoms expressed. Patient reports he has improved since admission, states to be in stable condition, feels safe to discharge, and he contracts for safety. Patients response to treatment was good. There were no adverse or unexpected results of treatment. The patient was safe throughout stay, active in treatment, engaged in groups, and was appropriate with staff. Patient met with treatment team prior to discharge to assess readiness to discharge and review discharge plan. The treatment team consensus is the patient in stable condition, has a safe discharge plan, and is ready to discharge today. CONDITION AT DISCHARGE: Patient is in stable condition and is no longer a danger to self or others, and is not gravely disabled due to mental illness. Patient is no longer in need of inpatient level of care, and can be safely and effectively treated within the community. The patients level of risk at time of discharge is low. MSE: The patient is casually dressed and with good hygiene , and looks stated age. Patient is sitting, posture is upright, and position is relaxed. Patient appears awake, alert, and responds appropriately and reasonably during interview. Patient is engaged, relates well to interviewer, and emotional facial expression is appropriate to situation and changes appropriately with topic. Patient is cooperative, makes comfortable eye contact , and movements are voluntary, deliberate, coordinated, and smooth and even with no inappropriate movements. Patient makes laryngeal sounds effortlessly and shares conversation appropriately; pace of conversation is appropriate, and stream of talking is fluent; articulation is clear and understandable; word choice is effortless and appropriate for education level; completes sentences, occasionally pausing to think; rate and volume are appropriate for interview and setting. Patient reports mood as euthymic. Patients affect is stable with full variable range, congruent with mood, and appropriate to speech and circumstances. Patient has linear and logical thinking, with no loose associations, tangential thought, thought blocking, concrete thinking, or any other signs of formal thought disorder. Patient denies suicidal and homicidal ideation, and denies hallucinations and delusions. Patient appears to be a reliable historian with sound judgement and good insight into current condition. Patient has no apparent dysfunction in recent or remote memory noted , and no evidence of gross cognitive dysfunction noted at any point during the interview. DISCHARGE DIAGNOSES: 1. Schizoaffective disorder, bipolar type. 2. Cannabis use disorder, severe. 3. Nicotine dependence. CURRENT MEDICATIONS: After reviewing options, risks and benefits with the patient, patient agrees to continue: 1. Depakote ER 1500 mg p.o. daily. 2. Invega 6 mg p.o. daily. 3. Nicorette gum 2 mg every hour as needed for nicotine withdrawal. 4. Ativan 1 mg as directed. Prescriptions for Depakote, Invega, and Ativan are provided. Prescriptions are reviewed with the patient at time of discharge to ensure accuracy and patient understanding. DISPOSITION: Patient left the hospital independently and voluntarily. Plans to go to [facility]. FOLLOWUP: Patient being admitted to [facility] after discharge. Arrangements have been made and patient agrees with plan to be admitted to [facility] under the care of [facility]. SUBSTANCE ABUSE BRIEF INTERVENTION: Brief intervention regarding the risks of cannabis abuse is provided to patient with goal to reduce the risk of harm that could result from the continued use of cannabis, with the general aim to investigate the problem, raise awareness of problem, develop a solution with the patient, recommend a specific change or activity, and motivate the patient toward change. Assess substance abuse behavior and give supportive advice about harm reduction, recommend a reduction in hazardous/at-risk consumption patterns, and facilitate referrals for additional specialized treatment with career services assistant. Intermediate goal is for the patient to quit cannabis and attend outpatient substance abuse treatment. Intervention focus on intermediate goals to allow for more immediate success in the treatment process to keep the patient motivated. Review following with patient: Cannabis use risks: Short-term use: impaired short-term memory, impaired motor coordination, altered judgement, in high doses paranoia and psychosis. Long-term use addiction, diminished life satisfaction and achievement, symptoms of chronic bronchitis, and increased risk of chronic psychosis disorders if predisposition to such disorders. In withdrawal anger, aggression irritability, anxiety and nervousness, decreased appetite or weight loss, restlessness, and sleep difficulties with strange dreams. OUTPATIENT SUBSTANCE ABUSE TREATMENT: Patient referred to outpatient provider and treatment for continued treatment related to substance abuse. LEGAL COURSE: Patient was admitted on an M1 hold for involuntary inpatient psychiatric hospitalization and treatment. Patient was placed on a short-term certification. Short-term certification was transferred to [facility]. ATTITUDE AT TIME OF DISCHARGE: The patients attitude was positive at time of discharge, and patient reports looking forward to discharging today. The patient reports he feels safe to discharge, is no longer a danger to himself or others, is in stable condition, and contracts for safety. Patient states he will continue medications as prescribed, and establish medication management treatment with an outpatient provider after discharge. Patient reports he understands the information that has been provided to him, and he understands, accepts, and agrees to psychotropic medications. Patient describes internal protective factors as the coping skills he has learned while hospitalized here, and he plans to continue to practice these coping skills after discharge. LABS AND STUDIES: There were no pending labs or studies at time of discharge. ADVANCE DIRECTIVES: There were no advance directives on file, and patient was full code during this hospitalization. The following psychotropic medication treatment informed consent and recommendations were provided to the patient at time of discharge. Patient reports he understands, accepts, and agrees to the information that has been provided. PSYCHOTROPIC MEDICATION TREATMENT INFORMED CONSENT and RECOMMENDATIONS: Review nature of condition, diagnosis, and prognosis. Review nature and purpose of psychotropic medication treatment. Review type of psychotropic medications being prescribed. Review risk and benefits of psychotropic medication treatment. Review probable length of time will need to take medications. Review risk and benefits of not undergoing psychotropic medication treatment. Review alternative treatments to psychotropic medications. Review psychotropic medications contraindications, side effects, and importance of reporting any side effects to a psychiatric provider, primary care provider, or other health healthcare liaison. Review importance of asking a psychiatric provider or primary care provider any questions or problems concerning the psychotropic medications. Review safety plan and the importance to contact [facility] or [facility] , or go to the nearest emergency room, if ever a danger to yourself/others, or unable to care for yourself. Recommend upon discharge to establish routine medication management treatment with a psychiatric provider, establish routine therapy appointments, and follow-up with a primary care provider. Verify patient understands, accepts, and agrees to the information that has been provided. /[id number]
[2018-10-01] MEDS ORDERED: LORazepam 0.5 MG TAB PO PRN (08:34)
== END 2018-10-01 09:40 | DRG 885 ==
LOC: BBEH 09-25 13:10
PROVIDERS: ADMIT Psychiatry & Neurology Behavioral Neurology & Neuropsychiatry; ATTEND Psychiatry & Neurology Behavioral Neurology & Neuropsychiatry
DX: F25.0 Schizoaffective disorder, bipolar type (principal); F12.90 Cannabis use, unspecified, uncomplicated; F17.210 Nicotine dependence, cigarettes, uncomplicated
CPT/HCPCS: 80305; G0480